=== PATIENT | female | born 1965 | race Caucasian/White ===

== ENCOUNTER 2020-01-17 12:48 | Outpatient (CLI) | payer OTHER, SELFPAY ==
--- NOTE | ~2020-01-17 | MR_ITS ---
EXAMINATION: MR cervical spine wo/w con DATE: 01/17/2020 14:08 INDICATION: Multiple sclerosis. Neck and arm pain. TECHNIQUE: Magnetic resonance imaging (MRI) of the cervical spine was performed without and with 13 m L MultiHance intravenous contrast. Sequences included sagittal and axial T2-weighted FSE, sagittal T2 -weighted FS FSE, and sagittal and axial T1-weighted FSE. Postcontrast sequences included sagittal an d axial T1-weighted FS FSE. COMPARISON: Cervical spine CT 06/15/2018 FINDINGS: There is 4 degrees dextrocurvature of cervical spine. Vertebral body heights and interverte bral disc heights are normal. The spinal cord signal intensity is normal. The following disc levels a re specifically discussed: C2-C3: The disc does not extend beyond the endplate margin. There is mild left uncovertebral joint os teoarthritis. There is no facet joint osteoarthritis. There is no neural foraminal stenosis. There is no central canal stenosis. C3-C4: The disc does not extend beyond the endplate margin. There is no uncovertebral joint osteoarth ritis. There is mild bilateral facet joint osteoarthritis. There is no neural foraminal stenosis. The re is no central canal stenosis. C4-C5: The disc is bulging. There is no uncovertebral joint osteoarthritis. There is mild bilateral f acet joint osteoarthritis. There is no neural foraminal stenosis. There is mild central canal stenosi s. C5-C6: The disc is mildly bulging. There is no uncovertebral joint osteoarthritis. There is no facet joint osteoarthritis. There is no neural foraminal stenosis. There is no central canal stenosis. C6-C7: The disc is mildly bulging. There is no uncovertebral joint osteoarthritis. There is no facet joint osteoarthritis. There is no neural foraminal stenosis. There is no central canal stenosis. C7-T1: The disc does not extend beyond the endplate margin. There is no uncovertebral joint osteoarth ritis. There is mild bilateral facet joint osteoarthritis. There is no neural foraminal stenosis. The re is no central canal stenosis. IMPRESSION: 1. Normal spinal cord. 2. Mild cervical spondylosis. Reviewed, dictated and finalized at location A.
[2020-01-17 13:30] LABS: Estimated Glomerular Filt Rate > 60
== END 2020-01-17 12:49 | disposition home or self-care (01) ==
LOC: ANHIMG 12:50
PROVIDERS: PCP Student in an Organized Health Care Education/Training Program; Visit Provider Psychiatry & Neurology Neurology
DX: G35 Multiple sclerosis (principal); M47.812 Spondylosis without myelopathy or radiculopathy, cervical region
CPT/HCPCS: 36415; 72156; A9577

== ENCOUNTER 2020-03-27 09:41 | Emergency (ER) | payer OTHER, SELFPAY ==
--- NOTE | ~2020-03-27 | CT_ITS ---
EXAMINATION: CT abdomen pelvis w con DATE: 03/27/2020 11:02 INDICATION: Abdominal pain, nausea and vomiting TECHNIQUE: Computed tomography (CT) of the abdomen and pelvis was performed with 100 mL Omnipaque-350 intravenous contrast. Automated exposure control and iterative reconstruction technique were employe d. The dose-length product was 290.42 mGy-cm. COMPARISON: 03/18/2019 FINDINGS: Lung bases are clear. Heart size is normal. No pericardial or pleural effusion. Small sliding-type hi atal hernia versus mild wall thickening in the distal esophagus which could be related to reflux. Elena er, gallbladder, spleen, pancreas, bilateral adrenal glands and kidneys are normal. No abnormal bowel wall thickening or obstruction. Large amount of stool throughout the colon which could be seen with constipation. Bowels including the appendix are otherwise normal with no wall thickening or obstructi on. Bladder is normal. Uterus and bilateral adnexa are not visualized and there are suture lines bila teral in the pelvis consistent with prior hysterectomy and bilateral salpingo-oophorectomy. No free i ntraperitoneal gas or fluid. No pathologically enlarged abdominal or pelvic lymphadenopathy. Bones ar e unremarkable. IMPRESSION: 1. Small sliding-type hiatal hernia versus wall thickening the distal esophagus which could be relate d to reflux. Reviewed, dictated and finalized at location A. IMPRESSION: 1. Small sliding-type hiatal hernia versus wall thickening the distal esophagus which could be related to reflux.
[2020-03-27 09:49] VITALS: BP 122/94; PULSE 85; RESP 20; TEMP 36.2; O2SAT 100
[2020-03-27 10:04] LABS: Basophils Percent Auto 0.3 % (0.2-1.2); Eosinophils Absolute Auto 0.1 K/mm3 (0-0.3); Eosinophils Percent Auto 0.6 % (0-4.4); Hematocrit 43.9 % (37.0-47.0); Hemoglobin 14.5 g/dL (12.0-15.0); Immature Granulocyte Absolute 0.04 K/mm3 (0.00-0.031); Immature Granulocyte Percent A 0.5 % (0-0.5); Lymphocytes Percent Auto 13.8 % (18.3-44.2); Mean Corpuscular Hemoglobin 30.7 pg (26-34); Mean Corpuscular Volume 92.8 fl (80-100); Mean Platelet Volume 11.1 fl (7.4-10.4); Monocytes Absolute Auto 0.9 K/mm3 (0.1-0.6); Monocytes Percent Auto 10.7 % (2.6-8.5); Neutrophils Absolute Auto 5.9 K/mm3 (1.3-6.7); Neutrophils Percent Auto 74.1 % (45.5-73.1); Platelet Count Result 290 k/mm3 (150-375); Red Blood Count 4.73 M/mm3 (4.2-5.4); Red Cell Distribution Width 13.4 % (11.5-14.5)
[2020-03-27 10:11] VITALS: BP 127/79; PULSE 92
[2020-03-27 10:14] VITALS: BP 117/84; PULSE 82
[2020-03-27 10:16] VITALS: BP 118/77; PULSE 86
[2020-03-27 10:16] LABS: Alanine Aminotransferase 37 U/L (4-35); Albumin Level 4.4 g/dL (3.5-5.1); Alkaline Phosphatase 115 U/L (38-126); Aspartate Amino Transferase 34 U/L (14-36); Bilirubin,Total < 0.1 mg/dL (0.2-1.3); Blood Urea Nitrogen 17 mg/dL (7-17); Calcium 9.1 mg/dL (8.4-10.2); Carbon Dioxide 24 mmol/L (22-30); Chloride 106 mmol/L (98-107); Estimated CRCL calculation 68 ml/min; Estimated Glomerular Filt Rate > 60; Glucose 122 mg/dL (65-105); Lipase 619 U/L (23-300); Potassium 4.1 mmol/L (3.4-5.0); Sodium 139 mmol/L (137-145)
--- NOTE | 2020-03-27 10:41 | ED.NAVMDI ---
HPI - Nausea/Vomiting/Diarrhea General Chief complaint: Nausea/Vomiting/Diarrhea Stated complaint: vomiting blood Time Seen by Provider: 03/27/20 10:10 Source: patient Mode of arrival: ambulatory Limitations: no limitations History of Present Illness HPI Narrative: This is a 54 year old female that presents to the ER for nausea x 2 weeks. Reports her doctor recently increased her dose of venlafaxine which she thinks worsened the nausea. She has broke this into two doses which has helped. Reports Monday she vomited and thought she had a couple of small dark spots in it that looked like blood. Reports today she had an episode of vomiting that was pink which prompted her to be seen. Denies fever, chest pain, diarrhea, hematochezia, melena, or dysuria. Related Data Home Medications Medication Instructions Recorded Confirmed alprazolam 0.5 mg tablet 0.5 mg PO TID 09/05/19 baclofen 10 mg tablet 10 mg PO DAILY 09/05/19 cholecalciferol (vitamin D3) 100 4,000 unit PO DAILY 09/05/19 mcg (4,000 unit) capsule fingolimod 0.5 mg capsule 0.5 mg PO DAILY 09/05/19 srwrjfevh-oyt-bzwk fumarate 18 1 tab-cap PO DAILY 09/05/19 mg-FA 600 mcg-vit K 40 mcg capsule ondansetron HCl 8 mg tablet 8 mg PO Q8H 09/05/19 ropinirole 0.25 mg tablet 0.25 mg PO BID 09/05/19 topiramate 50 mg capsule 50 mg PO DAILY 03/19/20 sprinkle,extended release 24 hr venlafaxine 75 mg PO BID 03/27/20 Allergies Allergy/AdvReac Type Severity Reaction Status Date / Time Sulfa (Sulfonamide Allergy Unknown Unknown Verified 03/27/20 10:08 Antibiotics) Review of Systems Review of Systems: Narrative: CONSTITUTIONAL: Denies fever CARDIOVASCULAR: Denies chest pain RESPIRATORY: Denies dyspnea. GASTROINTESTINAL: Reports abdominal pain, nausea, vomiting. Denies diarrhea. GENITOURINARY: Denies dysuria All systems reviewed & are unremarkable except as noted in HPI and below PMFSH Social History Social History Smoking status: Never smoker Second hand tobacco smoke exposure: No Exam Narrative: Exam Narrative: GENERAL: Well-appearing, well-nourished, and in no acute distress. HEAD: Normocephalic, atraumatic. EYES: EOMI. CHEST: Clear to auscultation. No respiratory distress. No wheezes rales or rhonchi HEART: Regular rate and rhythm. No murmur heard. Normal peripheral pulses. ABDOMEN: Soft, nondistended, normal active bowel sounds. Mild tenderness to palpation of the epigastrium, without guarding EXTREMITIES: Normal range of motion. No edema. SKIN: Warm, dry, no rash. NEURO: No focal deficits. Alert and oriented x3. PSYCH: Normal mood and affect Course Consultations Consultation #1: Spoke with on-call primary about work-up. Patient will follow-up in clinic next week. Date: 03/27/20 Time: 12:54 Vital Signs Vital signs: Vital Signs Temperature 97.1 F L 03/27/20 09:49 Pulse Rate 85 03/27/20 09:49 Respiratory Rate 20 03/27/20 09:49 Blood Pressure 122/94 H 03/27/20 09:49 Pulse Oximetry 100 03/27/20 09:49 Temperature 97.1 F L 03/27/20 09:49 Pulse Rate 86 03/27/20 10:16 Respiratory Rate 20 03/27/20 09:49 Blood Pressure 118/77 03/27/20 10:16 Pulse Oximetry 100 03/27/20 09:49 MDM - Nausea/Vomiting/Diarrhea MDM Narrative Medical decision making narrative: Patient presents to the emergency department for nausea x2 weeks. Also reports a couple of episodes of vomiting. Patient is afebrile and nontoxic-appearing. No leukocytosis on CBC. Metabolic panel is without acute findings. Lipase is elevated to 619. UA without evidence of infection. CT scan of the abdomen and pelvis shows a small sliding hiatal hernia versus wall thickening of the distal esophagus due to reflux. Patient given IV fluids, antiemetic and Pepcid in the ED with relief. No episodes of emesis in the ED. Patient is afebrile, no leukocytosis on CBC, and no concerning imaging findings. I do believe p
[2020-03-27] MEDS: FAMOTIDINE 20 MG/2 ML VIAL IV PUSH (10:54)
[2020-03-27] MEDS: SODIUM CHLORIDE 0.9% IV 1,000 ML 999 ML IV CONT (10:54)
[2020-03-27] MEDS: ONDANSETRON INJ 4 MG/2 ML VIAL IV PUSH (10:54)
[2020-03-27 11:03] LABS: Add Urine Microscopic? NO; Appearance Urine Clear (Clear); Bilirubin Urine Negative (Negative); Blood Urine Negative (Negative); Color Urine Yellow (Yellow); Glucose Urine UA Negative (Negative); Ketones Urine Negative (Negative); Leukocyte Esterase Ur Negative LEU/UL (Negative); Nitrate Urine Negative (Negative); Protein Urine Negative (Negative); Specific Grav Ur 1.019 (1.001-1.035); Urobilinogen Urine Negative mg/dL (<2.0)
== END 2020-03-27 13:10 | disposition home or self-care (01) ==
PROVIDERS: Emergency Provider Emergency Medicine; PCP Student in an Organized Health Care Education/Training Program
DX: K85.90 Acute pancreatitis without necrosis or infection, unspecified (principal); R93.3 Abnormal findings on diagnostic imaging of other parts of digestive tract
CPT/HCPCS: 36415; 74177; 80053; 81003; 83690; 85025; 96361; 96374; 96375; 99284; J0131; J2405; J7030; Q9967

== ENCOUNTER 2020-04-16 15:35 | Outpatient (CLI) | payer OTHER, SELFPAY ==
[2020-04-16 11:22] LABS: Basophils Percent Auto 0.4 % (0.2-1.2); Eosinophils Absolute Auto 0.1 K/mm3 (0-0.3); Eosinophils Percent Auto 1.6 % (0-4.4); Hematocrit 44.2 % (37.0-47.0); Hemoglobin 14.5 g/dL (12.0-15.0); Immature Granulocyte Absolute 0.02 K/mm3 (0.00-0.031); Immature Granulocyte Percent A 0.4 % (0-0.5); Lymphocytes Absolute Auto 0.82 K/mm3 (0.9-3.2); Lymphocytes Percent Auto 14.9 % (18.3-44.2); Mean Corpuscular HGB Conc 32.8 g/dl (32-36); Mean Corpuscular Hemoglobin 30.1 pg (26-34); Mean Corpuscular Volume 91.9 fl (80-100); Mean Platelet Volume 11.2 fl (7.4-10.4); Monocytes Absolute Auto 0.7 K/mm3 (0.1-0.6); Monocytes Percent Auto 12.6 % (2.6-8.5); Neutrophils Absolute Auto 3.9 K/mm3 (1.3-6.7); Neutrophils Percent Auto 70.1 % (45.5-73.1); Platelet Count Result 269 k/mm3 (150-375); Red Blood Count 4.81 M/mm3 (4.2-5.4); Red Cell Distribution Width 13.4 % (11.5-14.5); White Blood Count 5.5 K/mm3 (4.5-10.0)
[2020-04-16 11:33] LABS: Add Urine Microscopic? YES; Appearance Urine Clear (Clear); Bacteria Urine Trace /hpf; Bilirubin Urine Negative (Negative); Blood Urine Negative (Negative); Color Urine Yellow (Yellow); Glucose Urine UA Negative (Negative); Ketones Urine Negative (Negative); Leukocyte Esterase Ur Trace LEU/UL (NEGATIVE); Mucus Urine Heavy /lpf; Nitrate Urine Negative (Negative); Protein Urine Negative (Negative); RBC Urine 0-2 /hpf (0-2); Specific Grav Ur 1.024 (1.001-1.035); Squamous Epithelial Cell Urine Many /hpf (Few); Urobilinogen Urine Negative mg/dL (<2.0); WBC Urine 0-3 /hpf (0-3)
[2020-04-16 11:41] LABS: Alanine Aminotransferase 45 U/L (4-35); Albumin Level 4.4 g/dL (3.5-5.1); Alkaline Phosphatase 120 U/L (38-126); Anion Gap 11.3 mmol/L (7-16); Aspartate Amino Transferase 39 U/L (14-36); Bilirubin,Total 0.2 mg/dL (0.2-1.3); Blood Urea Nitrogen 17 mg/dL (7-17); Calcium 9.3 mg/dL (8.4-10.2); Carbon Dioxide 26 mmol/L (22-30); Chloride 106 mmol/L (98-107); Cholesterol 162 mg/dL (0-200); Estimated Glomerular Filt Rate > 60; Glucose 103 mg/dL (65-105); HDL Direct 34 mg/dL; Potassium 4.3 mmol/L (3.4-5.0); Sodium 139 mmol/L (137-145); Triglycerides 119 mg/dL (<150)
[2020-04-16 11:52] LABS: LDL Cholesterol Direct 93 mg/dL
[2020-04-16 12:04] LABS: Iron 86 ug/dL (37-170)
[2020-04-16 12:13] LABS: Percent Iron Saturation 28 % (20-50)
[2020-04-16 12:46] LABS: Folic Acid 9.3 ng/mL (2.76->20)
[2020-04-16 15:49] LABS: Lipase 102 U/L (23-300)
== END 2020-04-16 15:36 | disposition home or self-care (01) ==
PROVIDERS: PCP Physician Assistant; Visit Provider Physician Assistant
DX: K21.9 Gastro-esophageal reflux disease without esophagitis (principal); G35 Multiple sclerosis; F41.9 Anxiety disorder, unspecified; G44.209 Tension-type headache, unspecified, not intractable
CPT/HCPCS: 36415; 80053; 80061; 81001; 82607; 82746; 83540; 83550; 83690; 84443; 85025

== ENCOUNTER 2020-04-24 07:17 | Outpatient (CLI) | payer OTHER, SELFPAY ==
--- NOTE | ~2020-04-24 | US_ITS ---
EXAMINATION: US right upper quadrant DATE: 04/24/2020 07:45 INDICATION: Right upper quadrant pain TECHNIQUE: Multiple grayscale and Doppler ultrasound images of the abdomen were obtained. COMPARISON: None available FINDINGS: The head and and body of the pancreas are normal. The pancreatic tail is obscured by bowel gas. The liver is normal with normal echogenicity and echotexture. No surface nodularity. Normal hepa topetal flow in the main portal vein. The gallbladder is normal with no abnormal wall thickening, per icholecystic fluid or stones. The normal common bile duct measures 3 mm. There was no sonographic Mur phy sign. IMPRESSION: 1. Normal sonographic study of the gallbladder. Reviewed, dictated and finalized at location B.
== END 2020-04-24 07:18 | disposition home or self-care (01) ==
PROVIDERS: PCP Physician Assistant; Visit Provider Physician Assistant
DX: R11.2 Nausea with vomiting, unspecified (principal)
CPT/HCPCS: 76705

== ENCOUNTER 2020-06-04 12:30 | Outpatient (RCR) | payer OTHER, SELFPAY ==
[2020-03-12 10:30] VITALS: BP_SYST 92
--- NOTE | 2020-03-12 11:21 | PTOPEVAL ---
Thank you for referring Liliane Quiñonez to [facility]. Please review, sign, date and return this plan of care MARISA. Pt seen for therapy evaluation due to right shoulder pain. She demonstrates significant impairments with range, strength, UE function and pain. She requires additional skilled therapy to address impairments and improve UE function. REcommend cont PT 2x/wk x 8 wk. I agree with and certify that the following plan of care is medically necessary. Referring Physician Date Attending Provider: Farzaneh Manzo, TEASEL GIG OPERATOR *PT Outpatient Evaluation Start: 03/12/20 10:32 Freq: Status: Active Protocol: Document 03/12/20 10:30 CAP (Rec: 03/12/20 11:21 CAP [email or web address]) Therapy Assessment Status Assessment Status Assessment Status Evaluation Outpatient Past Medical History Past Medical History Source of Past Medical History Patient Neurological History Hx Migraine Yes Hx Multiple Sclerosis Yes: years Cardiovascular History Hx Cardiac Disorders No Significant History Respiratory History Hx Respiratory Disorders No Significant History Musculoskeletal History Hx Musculoskeletal Disorders No Significant History Reproductive History Hx Hysterectomy Yes Psychosocial History Hx Anxiety Yes Hx Depression Yes Other History Hx Cancer Yes: basal cell Evaluation Information Problem Diagnosis right shoulder pain Onset November 2018 Cause unknown Subjective Information Reports she started having Query Text:As Reported By Patient/ pain in november after she threw Family her purse over her shoulder. Reports catching of her shoulder with any reaching overhead or behind, quick UE motions, pushing into UE, carrying or lifting objects. She is limited to a gallon of milk. She reports difficulty with sleeping due to sleeping on right side. Reports right upper arm numbness and tingling with shoulde shooting pain with prolonged driving or computer with UE out in front. Diagnostic Tests X-Rays For This Problem Yes Previous Treatments Previous Treatments For This Problem exercise at home Prior Level of Function Activity Level (Last 3 Months) Occupation not working-disability Hand Dominance Right Activity of Daily Living Ability
[2020-04-13 13:31] VITALS: BP_SYST 87
--- NOTE | 2020-04-13 14:24 | PTOPEVAL ---
Thank you for referring Liliane Quiñonez to [facility]. Please review, sign, date and return this plan of care MARISA. Pt has received 9 therapy visits to address right UE impairments. She demonstrates a decline with shoulder range, strength and scapular stability strength. She demonstrates minimal progress towards therapy goals. Recommend she f/u with her MD due to limited progress. Cont PT 2x/wk x 4-6wk to address UE impairments. I agree with and certify that the following plan of care is medically necessary. Referring Physician Date Attending Provider: Farzaneh Manzo, CABLE TOWER OPERATOR PT re-evaluation note *PT Outpatient Evaluation Start: 03/12/20 10:32 Freq: Status: Active Protocol: Document 04/13/20 13:31 CAP (Rec: 04/13/20 13:54 CAP [email or web address]) Therapy Assessment Status Assessment Status Assessment Status Re-evaluation Outpatient Past Medical History Past Medical History Source of Past Medical History Patient Neurological History Hx Migraine Yes Hx Multiple Sclerosis Yes: years Cardiovascular History Hx Cardiac Disorders No Significant History Respiratory History Hx Respiratory Disorders No Significant History Musculoskeletal History Hx Musculoskeletal Disorders No Significant History Reproductive History Hx Hysterectomy Yes Psychosocial History Hx Anxiety Yes Hx Depression Yes Other History Hx Cancer Yes: basal cell Evaluation Information Problem Diagnosis right shoulder pain Onset November 2018 Cause unknown Subjective Information She reports cont pain with Query Text:As Reported By Patient/ right UE activities. She Family reports difficulty lifting the UE. She is unsure if it's the MS or muscle weakness. She remains limited with reaching She reports cont difficulty with sleeping due to sleeping on right side. She has throbbing pain with sleeping and driving.She has increased pain with playing with her dog . She is performing the HEP daily. She applied ice for pain relief. Pain Assessment Timing of Pain Assessment Timing of Pain Assessment Re-assessment Pain Scale Pain Scale Used Numeric (1 - 10) Self Report Pain Assessment Right Shoulder(s) Reported Pain Level 4 Pain Description Spasms Pain Radiation Right Arm Pain Frequency
--- NOTE | 2020-04-15 15:22 | PCPTNOTE ---
Patient called & cancelled scheduled appointment this date due to [ illness]
--- NOTE | 2020-04-30 15:42 | PCPTNOTE ---
Patient did not show up for scheduled appointment this date.
[2020-05-12 11:04] VITALS: BP_SYST 90
--- NOTE | 2020-05-12 11:56 | PTOPEVAL ---
Thank you for referring Liliane Quiñonez to [facility].? The patient is scheduled to be seen for therapy? 2 x/week for 4-6 weeks. Please review, sign, date and return this plan of care MARISA. I agree with and certify that the following plan of care is medically necessary. Referring Physician Date Admitting Provider: Attending Provider: Farzaneh Manzo, SALES TRAINER Physical Therapy progress note *PT Outpatient Evaluation Start: 03/12/20 10:32 Freq: Status: Active Protocol: Document 05/12/20 11:04 SOURAV (Rec: 05/12/20 11:56 SOURAV [id number]) Therapy Assessment Status Assessment Status Assessment Status Re-evaluation Evaluation Information Problem Diagnosis right shoulder pain Onset November 2018 Cause unknown Subjective Information She is performing more Query Text:As Reported By Patient/ activities of yardwork, moving Family objects and daily activities. She is using the pool to assist with shoulder range. She cont to feel limited with shoulder motions. She is unsure if it's the MS or muscle weakness that are limiting her UE movement. She reports she is having muscle spasms due to her MS. She bought a back glass engraver due to limited reaching motion. She reports limitation is greater with overhead motion. She reports improved tolerance with sleeping. She reports improved tolerance with driving, but will get a pinching of elbow and shoulder with prolonged holding of steering wheel. Pain Assessment Timing of Pain Assessment Timing of Pain Assessment Re-assessment Pain Scale Pain Scale Used Numeric (1 - 10) Self Report Pain Assessment Right Shoulder(s) Reported Pain Level 3 Pain Description Aching,Radiating,Spasms,Tender on Palpation,Tightness, Tingling Pain Frequency Chronic,Continuous Lowest Pain Intensity 3 Greatest Pain Intensity 8 Pain Aggravating Factors ADL's,Exercise/Activity, Lifting Pain Behaviors Anxious,Guarding Pain Score Pain Score 3: Self Report Upper
--- NOTE | 2020-05-14 11:18 | PCPTNOTE ---
Patient called & cancelled scheduled appointment this date due to illness.
--- NOTE | 2020-05-26 14:52 | PCPTNOTE ---
Patient called & cancelled scheduled appointment this date due to being sick.
--- NOTE | 2020-06-02 11:08 | PCPTNOTE ---
Patient called & cancelled scheduled appointment this date due to shoulder pain from MS.
[2020-06-04 12:34] VITALS: BP_SYST 80
--- NOTE | 2020-06-04 13:23 | PTOPEVAL ---
Thank you for referring Liliane Quiñonez to [facility].? Pt has reached maximal potential with skilled therapy service with limited progress with pain, range and strength.DC skilled therapy at this time. Please review, sign, date and return this plan of care MARISA. I agree with and certify that the following plan of care is medically necessary. Referring Physician Date Attending Provider: Thien Chakraborty PA-C Discharge Note *PT Outpatient Evaluation Start: 03/12/20 10:32 Freq: Status: Active Protocol: Document 06/04/20 12:34 SOURAV (Rec: 06/04/20 13:17 SOURAV [id number]) Therapy Assessment Status Assessment Status Assessment Status Re-evaluation/Discharge Note Evaluation Information Problem Diagnosis right shoulder pain Onset November 2018 Cause unknown Subjective Information She had a f/u with PCP who Query Text:As Reported By Patient/ recommend pt to be seen by a Family ortho MD due to cont issues with right shoulder. She cont to have right shoulder with pain and restrictions with yardwork, increased UE activities, reaching act. 8/10 right shoulder pain with ADL's. She cont to c/o having muscle spasms with burning pain of left entire arm. Symptoms are intermittent during the day. Muscle spasm interfer with her sleep. She reports cont pain with turning the wheel with driving. Pain Assessment Timing of Pain Assessment Timing of Pain Assessment Re-assessment Pain Scale Pain Scale Used Numeric (1 - 10) Self Report Pain Assessment Right Shoulder(s) Reported Pain Level 2 Pain Description Aching,Spasms,Tender on Palpation Pain Frequency Chronic,Continuous Lowest Pain Intensity 2 Greatest Pain Intensity 8 Pain Aggravating Factors ADL's,Exercise/Activity Pain Behaviors Anxious Pain Relief Interventions Used By Heat,Ice,Massage Modalities Patient Additional Pain Comments 3 days ago,slipped wet ground, caught self with R arm,pulled arm-ROM better Pain Score Pain Score 2: Self Report Upper Extremity Range of Motion Scapular/ Shoulder Range of Motion Right Scapular: Retraction Hypo
== END 2020-06-05 11:57 | disposition home or self-care (01) ==
LOC: ANHPT 12:30
PROVIDERS: PCP Physician Assistant; Visit Provider Physician Assistant
DX: M25.511 Pain in right shoulder (principal); G89.29 Other chronic pain
CPT/HCPCS: 97014; 97035; 97110; 97140; 97162; G0283

== ENCOUNTER 2020-06-20 00:35 | Outpatient (CLI) | payer OTHER, SELFPAY ==
[2020-06-20 17:49] LABS: SARS-CoV-2 RNA PCR Negative
== END 2020-06-20 00:36 | disposition home or self-care (01) ==
LOC: ANHCOVIDDT 00:35
PROVIDERS: PCP Physician Assistant; Visit Provider Internal Medicine Gastroenterology
DX: Z01.812 Encounter for preprocedural laboratory examination (principal); Z20.828 Contact with and (suspected) exposure to other viral communicable diseases
CPT/HCPCS: 87635; C9803; U0003

== ENCOUNTER 2020-06-23 02:37 | Day surgery (SDC) | payer OTHER, SELFPAY ==
[2020-06-16 14:44] VITALS: BMI 24.0
[2020-06-23 06:26] VITALS: BP 129/72; PULSE 74; RESP 18; TEMP 36.2; O2SAT 99; BMI 24.0
[2020-06-23] MEDS: LACTATED RINGERS 1,000 ML 150 ML IV CONT (06:44)
--- NOTE | 2020-06-23 07:12 | P.PNAN_ITS ---
Anes - Initial Pre Proc Eval Procedure: Operation Date: 06/23/20 07:30 Proposed Procedures p Esophagogastroduodenoscopy - Chet Stacy MD Date/Time: 06/23/20 07:12 Surgeon: Chet Stacy MD Pre Op Diagnosis: N & V Patient Data Age: 54 Gender: F Height: 5 ft 4 in Weight: 63.7 kg Last Vital Signs Temp 97.2 F L 06/23/20 06:26 Pulse 74 06/23/20 06:26 Resp 18 06/23/20 06:26 BP 129/72 06/23/20 06:26 Pulse Ox 99 06/23/20 06:26 Allergies Allergy/AdvReac Type Severity Reaction Status Date / Time doxycycline Allergy Unknown Rash Verified 06/23/20 06:25 Sulfa (Sulfonamide Allergy Unknown Rash Verified 06/23/20 06:25 Antibiotics) Home Medications Medication Instructions Recorded Confirmed Type alprazolam 0.5 mg tablet 0.5 mg PO TID 09/05/19 06/16/20 History baclofen 10 mg tablet 10 mg PO QID 09/05/19 06/16/20 History cholecalciferol (vitamin D3) 100 4,000 unit PO DAILY 09/05/19 06/16/20 History mcg (4,000 unit) capsule fingolimod 0.5 mg capsule 0.5 mg PO DAILY 09/05/19 06/16/20 History qgdbrdxms-pmt-nqdp fumarate 18 1 tab-cap PO DAILY 09/05/19 06/16/20 History mg-FA 600 mcg-vit K 40 mcg capsule ondansetron HCl 8 mg tablet 8 mg PO Q8H 09/05/19 06/16/20 History ropinirole 0.25 mg tablet 0.25 mg PO BID 09/05/19 06/16/20 History estradiol 1 mg tablet 1 mg PO DAILY #90 tablet 10/02/19 06/16/20 Rx topiramate 50 mg capsule 50 mg PO DAILY 03/19/20 06/16/20 History sprinkle,extended release 24 hr venlafaxine 75 mg PO BID 03/27/20 06/16/20 History butalbital 50 mg-acetaminophen 325 1 cap PO Q4H PRN 04/08/20 06/16/20 History mg-caffeine 40 mg-codeine 30 mg cap famotidine 20 mg tablet 20 mg PO DAILY 04/08/20 06/16/20 History Patient hx anesthesia problems: none Family hx anesthesia problems: none [facility] Social History Social History Smoking status: Never smoker Second hand tobacco smoke exposure: No Alcohol intake: former Alcohol use details: former social drinker Substance use: never Substance use type: does not use Living arrangements: with family Gender identity (if verbalized by the patient): Female Spiritual care concerns: No Anes - Eval Final PreProcedure Day of Procedure 06/23/20 07:12 Patient weight: normal Heart: regular rate and rhythm Lungs: clear to auscultation Airway: Mallampati scale class II Neurological: alert and oriented Last oral intake: >/= 8 hours ASA classification: III Emergent: no Anesthetic plan: proceed Anesthesia type and monitoring: general GIVS and standard monitoring Informed Consent: The patient's anesthetic plan and its attendant risks and benefits were discussed with the patient/family/POA. Questions were solicited and answers provided to the satisfaction of the patient/family/POA.
--- NOTE | 2020-06-23 07:30 | PM.HPGS ---
History of Present Illness History of Present Illness Consent: Risks, benefits, and alternatives have been discussed and questions answered. Patient agrees to proceed with procedure. Chief complaint: N & V Narrative: Liliane Quiñonez is a 54 year old female with nausea, CT scan showed possible esophagitis Review of Systems Constitutional: Constitutional: Denies headache(s) and Denies weakness Eyes: Eyes: Denies blurry vision ENT: Reports Normal hearing present, Denies headache(s) and Denies neck pain Cardiovascular: Cardiovascular: Denies chest pain and Denies dyspnea Respiratory: Respiratory: Denies dyspnea Gastrointestinal: Gastrointestinal: Reports no additional gastrointestinal complaints Genitourinary: Genitourinary: Denies dysuria Musculoskeletal: Musculoskeletal: Denies neck pain Integumentary/Breasts: Skin/Breast: Denies dry skin Neurologic: Reports Normal hearing present, Denies headache(s) and Denies weakness Psychiatric: Psychiatric: Denies anxiety Endocrine: Endocrine: Denies change in body appearance Hematologic/Lymphatic: Hematologic/Lymphatic: Denies easy bleeding Allergic/Immunologic: Allergic/Immunologic: Denies urticaria PMFSH Social History Social History Smoking status: Never smoker Second hand tobacco smoke exposure: No Alcohol intake: former Alcohol use details: former social drinker Substance use: never Substance use type: does not use Living arrangements: with family Gender identity (if verbalized by the patient): Female Spiritual care concerns: No Meds Home Medications and Allergies Home Medications Medication Instructions Recorded Confirmed Type alprazolam 0.5 mg tablet 0.5 mg PO TID 09/05/19 06/16/20 History baclofen 10 mg tablet 10 mg PO QID 09/05/19 06/16/20 History cholecalciferol (vitamin D3) 100 4,000 unit PO DAILY 09/05/19 06/16/20 History mcg (4,000 unit) capsule fingolimod 0.5 mg capsule 0.5 mg PO DAILY 09/05/19 06/16/20 History zyeljzvlj-mdp-[id number] fumarate 18 1 tab-cap PO DAILY 09/05/19 06/16/20 History mg-FA 600 mcg-vit K 40 mcg capsule ondansetron HCl 8 mg tablet 8 mg PO Q8H 09/05/19 06/16/20 History ropinirole 0.25 mg tablet 0.25 mg PO BID 09/05/19 06/16/20 History estradiol 1 mg tablet 1 mg PO DAILY #90 tablet 10/02/19 06/16/20 Rx topiramate 50 mg capsule 50 mg PO DAILY 03/19/20 06/16/20 History sprinkle,extended release 24 hr venlafaxine 75 mg PO BID 03/27/20 06/16/20 History butalbital 50 mg-acetaminophen 325 1 cap PO Q4H PRN 04/08/20 06/16/20 History mg-caffeine 40 mg-codeine 30 mg cap famotidine 20 mg tablet 20 mg PO DAILY 04/08/20 06/16/20 History Allergies Allergy/AdvReac Type Severity Reaction Status Date / Time doxycycline Allergy Unknown Rash Verified 06/23/20 06:25 Sulfa (Sulfonamide Allergy Unknown Rash Verified 06/23/20 06:25 Antibiotics) Vital Signs Vital Signs - 24 hr 06/23/20 06:26 Temperature 97.2 F L Pulse Rate 74 Respiratory Rate 18 Blood Pressure 129/72 Pulse Oximetry 99 Exam Const: General: comfortable and no acute distress HENMT: General nose exam: Normal nares present Eyes: General: appearance normal, both eyes and all related structures Neck: Neck: no JVD Resp: Auscultation: clear to auscultation bilaterally Cardio: Rate: regular rate Rhythm: regular rhythm GI: Inspection: non-distended GI Palp: Yes Soft to palpation Skin: General skin exam: normal color Neuro: General: gait normal Speech: normal speech Extrem: General: normal to inspection Psych: Mental Status: mental status grossly normal Assessment and Plan Assessment and plan (1) GERD (gastroesophageal reflux disease): Qualifiers: Esophagitis presence: esophagitis presence not specified Qualified Code(s): K21.9 - Gastro-esophageal reflux disease without esophagitis Code(s): K21.9 - Gastro-esophageal reflux disease w
[2020-06-23 07:49] VITALS: BP 100/82; PULSE 63; RESP 16; O2SAT 99
[2020-06-23 07:59] VITALS: BP 100/92; PULSE 61; RESP 18; O2SAT 99
[2020-06-23 08:09] VITALS: BP 101/59; PULSE 60; RESP 18; O2SAT 99
== END 2020-06-23 08:25 | disposition home or self-care (01) ==
PROVIDERS: PCP Physician Assistant; Visit Provider Internal Medicine Gastroenterology
PROC: 0DJ08ZZ Inspection of Upper Intestinal Tract, Via Natural or Artificial Opening Endoscopic (ICD-10-PCS; CPT 43235; principal; 2020-06-23 07:30)
DX: R11.0 Nausea (principal); K21.9 Gastro-esophageal reflux disease without esophagitis; K44.9 Diaphragmatic hernia without obstruction or gangrene
CPT/HCPCS: 43239; 88305; J2704; J7120

== ENCOUNTER 2020-08-07 15:28 | Outpatient (CLI) | payer OTHER, SELFPAY ==
[2020-08-07 16:01] LABS: Hematocrit 40.3 % (37.0-47.0); Immature Granulocyte Absolute 0.01 K/mm3 (0.00-0.031); Immature Granulocyte Percent A 0.3 % (0-0.5); Lymphocytes Absolute Auto 0.57 K/mm3 (0.9-3.2); Lymphocytes Percent Auto 14.4 % (18.3-44.2); Mean Corpuscular HGB Conc 32.3 g/dl (32-36); Mean Corpuscular Hemoglobin 29.3 pg (26-34); Monocytes Absolute Auto 0.5 K/mm3 (0.1-0.6); Monocytes Percent Auto 13.2 % (2.6-8.5); Neutrophils Absolute Auto 2.8 K/mm3 (1.3-6.7); Neutrophils Percent Auto 71.1 % (45.5-73.1); Platelet Count Result 242 k/mm3 (150-375); Red Blood Count 4.43 M/mm3 (4.2-5.4); Red Cell Distribution Width 14.7 % (11.5-14.5)
[2020-08-07 16:12] LABS: Alanine Aminotransferase 88 U/L (4-35); Albumin Level 4.2 g/dL (3.5-5.1); Alkaline Phosphatase 139 U/L (38-126); Aspartate Amino Transferase 57 U/L (14-36); Bilirubin,Total 0.2 mg/dL (0.2-1.3)
== END 2020-08-07 15:29 | disposition home or self-care (01) ==
LOC: ANHLAB 15:30
PROVIDERS: PCP Physician Assistant; Visit Provider Psychiatry & Neurology Neurology
DX: G35 Multiple sclerosis (principal)
CPT/HCPCS: 36415; 80076; 85025

== ENCOUNTER 2020-09-10 17:41 | Outpatient (CLI) | payer OTHER, SELFPAY ==
--- NOTE | ~2020-09-10 | MM_ITS ---
EXAMINATION: MM screening mammo BI HISTORY: Screening mammogram TECHNIQUE: Full field digital craniocaudal and mediolateral oblique views of both breasts were obtain ed. CAD analysis was submitted and interpreted. COMPARISON: 08/23/2018 BREAST PARENCHYMAL COMPOSITION: The breasts are heterogeneously dense, which may obscure small masses . FINDINGS: Right breast: There is no evidence of suspicious mass, calcification, or architectural distortion to suggest malignancy. There has been no suspicious interval change. Left breast: An asymmetry is present in the middle third of the upper breast 5 cm from the nipple in the anterior fibroglandular margin on the mediolateral oblique view. IMPRESSION: 1. Left breast asymmetry on the mediolateral oblique view. 2. Additional mammographic views and possible breast ultrasound are recommended. BI-RADS Category 0: Incomplete: Needs additional imaging evaluation. Reviewed, dictated and finalized at location A. ESS DESIGN CHEMICAL ENGINEER IMPRESSION: 1. Left breast asymmetry on the mediolateral oblique view. 2. Additional mammographic views and possible breast ultrasound are recommended . BI-RADS Category 0: Incomplete: Needs additional imaging evaluation.
== END 2020-09-10 17:42 | disposition home or self-care (01) ==
PROVIDERS: PCP Physician Assistant; Visit Provider Student in an Organized Health Care Education/Training Program
DX: Z12.31 Encounter for screening mammogram for malignant neoplasm of breast (principal); R92.8 Other abnormal and inconclusive findings on diagnostic imaging of breast
CPT/HCPCS: 77067

== ENCOUNTER 2020-11-10 12:34 | Outpatient (CLI) | payer OTHER, SELFPAY ==
--- NOTE | ~2020-11-10 | MMUS_ITS ---
EXAMINATION: MM diagnostic darío LT w [place], US breast LT complete HISTORY: Follow-up left breast asymmetry TECHNIQUE: Additional 3-D tomosynthesis images of the left breast were performed and synthetic 2-D im ages were generated. CAD analysis was submitted and interpreted. High resolution left breast ultrasou nd was performed. COMPARISON: Comparison to multiple prior studies sequentially, with oldest reviewed study dated 07/27. BREAST PARENCHYMAL COMPOSITION: The breasts are heterogenously dense, which may obscure small masses. FINDINGS: MAMMOGRAPHIC FINDINGS: There are no suspicious masses, calcifications or architectural distortion in the left breast with sp ot compression or mediolateral views. ULTRASOUND: Complete left breast ultrasound: Normal heterogeneous echotexture without focal solid or cystic mass. IMPRESSION: 1. No mammographic or sonographic evidence for malignancy in the left breast. 2. Routine yearly screening mammogram and regular clinical breast examination are recommended. BI-RADS Category 1: Negative Reviewed, dictated and finalized at location A. KE ASSESSOR IMPRESSION: 1. No mammographic or sonographic evidence for malignancy in the left breast. 2. Routine yearly screening mammogram and regular clinical breast examination a re recommended. BI-RADS Category 1: Negative
== END 2020-11-10 12:35 | disposition home or self-care (01) ==
LOC: ANHIMG 12:36
PROVIDERS: PCP Physician Assistant; Visit Provider Student in an Organized Health Care Education/Training Program
DX: R92.8 Other abnormal and inconclusive findings on diagnostic imaging of breast (principal)
CPT/HCPCS: 76641; 77061; 77065; G0279

== ENCOUNTER 2020-12-02 08:49 | Outpatient (CLI) | payer OTHER, SELFPAY ==
--- NOTE | ~2020-12-02 | DEXA_ITS ---
Bone Density Report Name: Liliane Quiñonez Age: 55 Sex: Female Ethnicity: White Date of : 1965 Indication: postmenopausal; hysterectomy; Referring Provider: Thien Chakraborty Study: Bone densitometry was performed. Exam Date: December 02, 2020 Accession number: [id number] Bone Density: Region BMD T-score Z-score Classification AP Spine (L1-L4) 0.842 -1.9 -0.7 Osteopenia Femoral Neck (Left) 0.701 -1.3 -0.2 Osteopenia Total Hip (Left) 0.743 -1.6 -0.9 Osteopenia Total Hip Bilateral Avg 0.753 -1.6 -0.8 Osteopenia Femoral Neck (Right) 0.696 -1.4 -0.3 Osteopenia Total Hip (Right) 0.762 -1.5 -0.7 Osteopenia World Health Organization criteria for BMD impression classify patients as: Normal (T-score at or above -1.0), Osteopenia (T-score between -1.0 and -2.5), or Osteoporosis (T-score at or below -2.5). 10-year Fracture Risk(1): Major Osteoporotic Fracture 6.1% Hip Fracture 0.4% Reported Risk Factors: [place] (), Neck BMD=0.696, BMI=22.1 (1) FRAX(R) Version 3.08. Fracture probability calculated for an untreated patient. Fracture probability may be lower if the patient has received treatment. Clinical Information Provided by Patient: Has used the following medications: Vitamin D Has the following medical conditions: Hysterectomy Patient maximum height was 65 Menopause Age: 38 No regular weight bearing exercise Onset of menses at age 13 Number of children 0 Impression: The patient has low bone mass, based on the Total Spine T-score. The patient has an estimated ten-year risk of hip fracture of 0.4% and an estimated ten-year risk of major fracture of 6.1%, based on the WHO FRAX algorithm. Discussion: BONE DENSITY IS LOW AT ONE OR MORE SKELETAL SITES. This patient's lowest T-score is low at one or more skeletal sites. It meets the World Health Organization's (WHO) criteria for ?low bone mass? (T-score between -1.0 and -2.5). The patient's 10-year risk of fracture as calculated by FRAX is less than the threshold where pharmacological therapy is recommended by the National Osteoporosis Foundation (NOF). However, all treatment decisions require clinical judgment and consideration of individual patient factors, including patient preferences, comorbidities, previous drug use, risk factors not captured in the FRAX model (e.g., frailty, falls, vitamin D deficiency, increased bone turnover, interval significant decline in bone density) and possible under or overestimation of fracture risk by FRAX. The patient should follow a healthful lifestyle (good nutrition with adequate calcium and vitamin D, and appropriate weight-bearing exercise). Follow-Up: Consider repeating this study in 2 to 3 years to reassess this patient's status, or sooner if there is some new clinical indication. Reported by: ZACHARY on 12/02
== END 2020-12-02 08:50 | disposition home or self-care (01) ==
LOC: ANHIMG 08:51
PROVIDERS: PCP Physician Assistant; Visit Provider Physician Assistant
DX: Z78.0 Asymptomatic menopausal state (principal); M81.0 Age-related osteoporosis without current pathological fracture; M85.88 Other specified disorders of bone density and structure, other site; M85.852 Other specified disorders of bone density and structure, left thigh; M85.851 Other specified disorders of bone density and structure, right thigh
CPT/HCPCS: 77080

== ENCOUNTER 2020-12-25 12:33 | Outpatient (CLI) | payer OTHER, SELFPAY ==
[2020-12-25 13:47] LABS: Basophils Percent Auto 0.3 % (0.2-1.2); Eosinophils Percent Auto 1.2 % (0-4.4); Hematocrit 39.4 % (37.0-47.0); Hemoglobin 12.5 g/dL (12.0-15.0); Immature Granulocyte Absolute 0.01 K/mm3 (0.00-0.031); Immature Granulocyte Percent A 0.3 % (0-0.5); Lymphocytes Absolute Auto 0.55 K/mm3 (0.9-3.2); Lymphocytes Percent Auto 15.9 % (18.3-44.2); Mean Corpuscular HGB Conc 31.7 g/dl (32-36); Mean Corpuscular Volume 94.5 fl (80-100); Mean Platelet Volume 11.4 fl (7.4-10.4); Monocytes Absolute Auto 0.5 K/mm3 (0.1-0.6); Monocytes Percent Auto 13.9 % (2.6-8.5); Neutrophils Absolute Auto 2.4 K/mm3 (1.3-6.7); Neutrophils Percent Auto 68.4 % (45.5-73.1); Platelet Count Result 226 k/mm3 (150-375); Red Blood Count 4.17 M/mm3 (4.2-5.4); Red Cell Distribution Width 13.7 % (11.5-14.5); White Blood Count 3.5 K/mm3 (4.5-10.0)
[2020-12-25 14:03] LABS: Alanine Aminotransferase 57 U/L (4-35); Albumin Level 4.4 g/dL (3.5-5.1); Alkaline Phosphatase 109 U/L (38-126); Aspartate Amino Transferase 48 U/L (14-36); Bilirubin,Total 0.1 mg/dL (0.2-1.3)
[2020-12-25 14:43] LABS: Vitamin D 25 Hydroxy 61.6 ng/mL
== END 2020-12-25 12:34 | disposition home or self-care (01) ==
LOC: ANHLAB 12:37
PROVIDERS: PCP Physician Assistant; Visit Provider Psychiatry & Neurology Neurology
DX: G35 Multiple sclerosis (principal)
CPT/HCPCS: 36415; 80076; 82306; 85025

== ENCOUNTER → 2021-06-02 01:35 | Outpatient (CLI) | payer OTHER, SELFPAY ==
[2021-06-02 20:24] LABS: SARS-CoV-2 RNA PCR Negative
== END ==
PROVIDERS: PCP Family Medicine; Visit Provider Physician Assistant
DX: R05 Cough (principal); Z20.822 Contact with and (suspected) exposure to COVID-19
CPT/HCPCS: C9803; U0003; U0005

== ENCOUNTER 2022-01-27 10:17 | Outpatient (CLI) | payer OTHER, SELFPAY ==
--- NOTE | ~2022-01-27 | MM_ITS ---
EXAMINATION: MM screening darío BI w [place] HISTORY: Screening mammogram TECHNIQUE: Craniocaudal and mediolateral oblique 3-D tomosynthesis images were obtained and synthetic 2-D images were generated. CAD analysis was submitted and interpreted. COMPARISON: 11/10/2020 diagnostic left mammogram and complete left breast ultrasound 09/10/2020, 08/23/2008 18 bilateral screening mammogram examinations BREAST PARENCHYMAL COMPOSITION: The breasts are heterogeneously dense, which may obscure small masses . FINDINGS: There is no evidence of suspicious mass, calcification, or architectural distortion to sugg est malignancy in either breast. There has been no suspicious interval change. IMPRESSION: 1. No mammographic evidence of malignancy. 2. Recommend routine screening mammography in one year. BI-RADS Category 1: Negative Reviewed, dictated and finalized at location A.
== END 2022-01-27 10:18 | disposition home or self-care (01) ==
PROVIDERS: PCP Nurse Practitioner Family; Visit Provider Student in an Organized Health Care Education/Training Program
DX: Z12.31 Encounter for screening mammogram for malignant neoplasm of breast (principal)
CPT/HCPCS: 77063; 77067

== ENCOUNTER 2022-04-14 16:00 | Emergency (ER) | payer OTHER, MEDICAID, SELFPAY ==
--- NOTE | ~2022-04-14 | XR_ITS ---
EXAMINATION: XR chest 1V DATE: 04/14/2022 17:00 INDICATION: Chest pain. COVID-19 positive. TECHNIQUE: A single frontal view of the chest was obtained. COMPARISON: Chest 2 views 03/27/2019 FINDINGS: The chest demonstrates clear lungs without pneumonia, pleural effusion, or pneumothorax. Th e heart size is normal. IMPRESSION: 1. No acute cardiopulmonary disease. Reviewed, dictated and finalized at location A.
[2022-04-14 16:32] VITALS: BP 135/89; PULSE 93; RESP 20; TEMP 36.4; O2SAT 100
--- NOTE | 2022-04-14 16:36 | ECG_ITS ---
Measurements Intervals [place] Rate: 80 P: 76 UT: 134 QRS: 19 QRSD: 82 T: 58 QT: 380 QTc: 440 Interpretive Statements SINUS RHYTHM POSSIBLE RIGHT ATRIAL ENLARGEMENT BASELINE ARTIFACT- I, II, III, AVR, AVL, AVF BORDERLINE ECG Electronically Signed On 04-14-2022 20:21:27 CDT by Quique Yun D.O.
[2022-04-14 19:24] VITALS: PULSE 84
--- NOTE | 2022-04-14 19:27 | ED.CHESTPAIN ---
HPI - Chest Pain General Chief Complaint: Chest Pain Stated Complaint: Left Breast Pain, COVID + Time Seen by Provider: 04/14/22 19:23 Source: patient Mode of arrival: ambulatory Limitations: no limitations History of Present Illness HPI narrative: 56 years old white female developed COVID symptoms and tested positive at the same day, 3 days ago. Patient is fully vaccinated for COVID, boosted once. Started on PaxLOVID 3 days ago, presents with chest pain, back pain and muscle pain. Denies any fever, headache, nausea, vomiting. MD complaint: chest pain Related Data Home Medications Medication Instructions Recorded Confirmed alprazolam 0.5 mg tablet 0.5 mg PO TID 09/05/19 12/16/21 fingolimod 0.5 mg capsule ([employer]) 0.5 mg PO DAILY 09/05/19 12/16/21 igqxgudgj-iht-qhec fumarate 18 1 tab-cap PO DAILY 09/05/19 12/16/21 mg-FA 600 mcg-vit K 40 mcg capsule (Multi For Her) ondansetron HCl 8 mg tablet 8 mg PO Q8H 09/05/19 12/16/21 (Zofran) acetaminophen 650 mg 650 mg PO Q12H 11/11/20 12/16/21 tablet,extended release (Tylenol Arthritis Pain) baclofen 10 mg tablet 20 mg PO TID PRN 10/04/21 12/16/21 cholecalciferol (vitamin D3) 100 5,000 unit PO DAILY 10/04/21 12/16/21 mcg (4,000 unit) capsule ropinirole 0.5 mg tablet 0.5 mg PO BID 10/04/21 12/16/21 venlafaxine 75 mg tablet 150 mg PO DAILY 10/04/21 12/16/21 Allergies Allergy/AdvReac Type Severity Reaction Status Date / Time doxycycline Allergy Unknown Rash Verified 04/14/22 19:21 Sulfa (Sulfonamide Allergy Unknown Rash Verified 04/14/22 19:21 Antibiotics) Review of Systems Review of Systems: All systems reviewed & are unremarkable except as noted in HPI and below PMFSH Past Medical History Medical History Acid reflux Allergies Anxiety Basal cell carcinoma BMI 25.0-25.9,adult Breast cancer screening Chronic anxiety Chronic depression Chronic sinusitis Chronic sinusitis Colon cancer screening Constipation COVID-19 (04/08/22) test positive 04/11/2022. Depression Early satiety Elevated liver enzymes Encounter to establish care Food intolerance GERD (gastroesophageal reflux disease) History of skin cancer Migraines Multiple sclerosis Multiple sclerosis Nausea & vomiting Pain of right shoulder joint on movement Postprandial abdominal pain in right upper quadrant Restless leg syndrome Tension headache Surgical History Surgical History H/O myomectomy H/O total hysterectomy with removal of both tubes and ovaries [place] teeth removed Family History Family History Sibling Diabetes mellitus Mother Family history of blood dyscrasia Family history of malignant neoplasm of ovary Father Acute myocardial infarction Social History Social History Smoking status: Never smoker Second hand tobacco smoke exposure: No Alcohol intake: former Alcohol use details: former social drinker Substance use: current Substance use type: marijuana Other substance usage details: medical marijuana for MS Gender identity (if verbalized by the patient): Female Spiritual care concerns: No Exam Narrative: General appearance: Well-developed, well-nourished Skin: Normal color Head: Normocephalic, nontraumatic Eyes: Clear conjunctiva ENT: Oropharynx normal, ears normal, nose normal Neck: Supple, nontender Chest and respiratory: Airway patent, no respiratory distress, no accessory muscle use Heart: Regular rate/rhythm Abdomen: Soft, nontender, no organomegaly, quiet bowel sounds Vascular: Normal peripheral pulses, normal capillary refill. Musculoskeletal: Normal range of motion, nontender back Neurologic: Alert and oriented ?3, CAR PORTER is normal as tested, no gross motor deficit
[2022-04-14 19:30] VITALS: BP 130/74; PULSE 88; RESP 14; O2SAT 99
[2022-04-14 19:43] LABS: Basophils Percent Auto 0.4 % (0.2-1.2); Hematocrit 43.5 % (37.0-47.0); Hemoglobin 14.2 g/dL (12.0-15.0); Immature Granulocyte Absolute 0.02 K/mm3 (0.00-0.031); Immature Granulocyte Percent A 0.8 % (0-0.5); Lymphocytes Absolute Auto 0.88 K/mm3 (0.9-3.2); Lymphocytes Percent Auto 36.2 % (18.3-44.2); Mean Corpuscular HGB Conc 32.6 g/dl (32-36); Mean Corpuscular Hemoglobin 29.8 pg (26-34); Mean Corpuscular Volume 91.4 fl (80-100); Monocytes Absolute Auto 0.6 K/mm3 (0.1-0.6); Monocytes Percent Auto 25.1 % (2.6-8.5); Neutrophils Absolute Auto 0.9 K/mm3 (1.3-6.7); Neutrophils Percent Auto 37.5 % (45.5-73.1); Platelet Count Result 221 k/mm3 (150-375); Red Blood Count 4.76 M/mm3 (4.2-5.4); Red Cell Distribution Width 14.2 % (11.5-14.5); White Blood Count 2.4 K/mm3 (4.5-10.0)
[2022-04-14 19:53] LABS: Alanine Aminotransferase 73 U/L (6-35); Albumin Level 4.8 g/dL (3.5-5.1); Alkaline Phosphatase 119 U/L (38-126); Anion Gap 10 mmol/L (8-16); Aspartate Amino Transferase 64 U/L (14-36); Bilirubin,Total 0.4 mg/dL (0.2-1.3); Blood Urea Nitrogen 13 mg/dL (7-17); Calcium 9.1 mg/dL (8.4-10.2); Carbon Dioxide 23 mmol/L (22-30); Chloride 106 mmol/L (98-107); Estimated CRCL calculation 66 ml/min; Estimated Glomerular Filt Rate > 60; Glucose 106 mg/dL (65-110); INR 0.9; Lipase 84 U/L (23-300); Potassium 3.8 mmol/L (3.4-5.0); Prothrombin Time 11.8 Seconds (11.1-14.7); Sodium 139 mmol/L (137-145)
[2022-04-14 19:54] LABS: Partial Thromboplastin Time 35.6 SECONDS (22.3-36.8)
[2022-04-14 20:05] LABS: Troponin I < 0.012 ng/mL (0.000-0.034)
[2022-04-14 20:15] LABS: D Dimer 0.27 ug/mL (<0.48)
[2022-04-14 20:25] LABS: Alveolar/Arterial O2 Gradient 20.9 mmHg; Base Excess ABG -2.3 mEq/l (+/-2.0); Fractional Inspired Oxygen 21 %; HCO3 ABG 21.3 mEq/l (22.0-26.0); Oxygen Content ABG 19.1 %vol (16.0-22.0); Oxyhemoglobin 95.9 % THb (90.0-100.0); PCO2 ABG 33.3 mmHg (35.0-45.0); PO2 FiO2 Ratio Arterial Blood 4.24 %; Total Hemoglobin 14.1 g/dL (12.0-18.0); pH ABG 7.423 (7.350-7.450)
[2022-04-14 20:26] LABS: Device ROOM AIR; Site Drawn RIGHT BRACHIAL
[2022-04-14 20:30] VITALS: BP 129/69; PULSE 77; RESP 19; O2SAT 96
[2022-04-14 21:00] VITALS: BP 133/89; PULSE 66; RESP 17; O2SAT 97
== END 2022-04-14 21:00 | disposition home or self-care (01) ==
PROVIDERS: Emergency Provider Emergency Medicine; PCP Nurse Practitioner Family
DX: U07.1 COVID-19 (principal); R07.89 Other chest pain; M54.9 Dorsalgia, unspecified; J32.9 Chronic sinusitis, unspecified; K21.9 Gastro-esophageal reflux disease without esophagitis; G35 Multiple sclerosis; G25.81 Restless legs syndrome; Z86.16 Personal history of COVID-19; F32.A Depression, unspecified; F41.9 Anxiety disorder, unspecified; Z85.828 Personal history of other malignant neoplasm of skin; Z90.710 Acquired absence of both cervix and uterus; Z90.722 Acquired absence of ovaries, bilateral; Z90.79 Acquired absence of other genital organ(s); R94.31 Abnormal electrocardiogram [ECG] [EKG]
CPT/HCPCS: 36415; 36600; 71045; 80053; 82805; 83690; 84484; 85025; 85380; 85610; 85730; 93005; 99284

== ENCOUNTER 2022-08-05 12:59 | Outpatient (CLI) | payer OTHER, MEDICAID, SELFPAY ==
--- NOTE | ~2022-08-05 | XR_ITS ---
XR hand LT 2V DATE: 08/05/2022 13:34 INDICATION: Left hand pain TECHNIQUE: AP and lateral views COMPARISON: None FINDINGS: There is mild osteoarthritis at the first metacarpophalangeal and some interphalangeal join ts. No fracture, dislocation, periosteal reaction or bone destruction or erosive change or chondrocalcino sis. IMPRESSION: Mild osteoarthritis Reviewed, dictated and finalized at location A. TITUTE CROSSING GUARD IMPRESSION: Mild osteoarthritis
--- NOTE | ~2022-08-05 | XR_ITS ---
XR hand RT 2V DATE: 08/05/2022 13:33 INDICATION: Right hand pain. No injury. TECHNIQUE: AP and lateral views COMPARISON: None FINDINGS: Mild osteoarthritic changes are noted primarily at interphalangeal joints. No erosive adrian e. No fracture or dislocation, periosteal reaction or bone destruction. IMPRESSION: Mild osteoarthritis Reviewed, dictated and finalized at location A. BASTING FACING BASTER IMPRESSION: Mild osteoarthritis
== END 2022-08-05 13:00 | disposition home or self-care (01) ==
LOC: ANHIMG 13:15
PROVIDERS: PCP Nurse Practitioner Family; Visit Provider Nurse Practitioner Family
DX: M19.041 Primary osteoarthritis, right hand (principal); M19.042 Primary osteoarthritis, left hand; Z13.1 Encounter for screening for diabetes mellitus; Z13.6 Encounter for screening for cardiovascular disorders; Z13.29 Encounter for screening for other suspected endocrine disorder; R39.89 Other symptoms and signs involving the genitourinary system; R39.15 Urgency of urination; R41.9 Unspecified symptoms and signs involving cognitive functions and awareness; F41.9 Anxiety disorder, unspecified; F32.9 Major depressive disorder, single episode, unspecified
CPT/HCPCS: 73120

== ENCOUNTER → 2023-01-30 12:29 | Outpatient (CLI) | payer OTHER, SELFPAY ==
--- NOTE | ~2023-01-30 | MM_ITS ---
EXAMINATION: MM [facility] w [place] HISTORY: Screening mammogram TECHNIQUE: Craniocaudal and mediolateral oblique 3-D tomosynthesis images were obtained and synthetic 2-D images were generated. CAD analysis was submitted and interpreted. COMPARISON: 01/27/2022, 11/10/2020, 09/10/2020 BREAST PARENCHYMAL COMPOSITION: The breasts are heterogeneously dense, which may obscure small masses . FINDINGS: RIGHT BREAST: An asymmetry is present in the anterior third of the slightly inner breast on the crani ocaudal view. LEFT BREAST: No suspicious mass, calcification, or architectural distortion are identified to suggest malignancy. There has been no suspicious interval change. IMPRESSION: 1. Right breast asymmetry 2. Additional mammographic views and possible breast ultrasound are recommended. BI-RADS Category 0: Incomplete: Needs additional imaging evaluation. Reviewed, dictated and finalized at location A. IMPRESSION: 1. Right breast asymmetry 2. Additional mammographic views and possible breast ultrasound are recommended . BI-RADS Category 0: Incomplete: Needs additional imaging evaluation.
== END ==
PROVIDERS: PCP Family Medicine; Visit Provider Obstetrics & Gynecology
DX: Z12.31 Encounter for screening mammogram for malignant neoplasm of breast (principal); R92.8 Other abnormal and inconclusive findings on diagnostic imaging of breast
CPT/HCPCS: 77063; 77067

== ENCOUNTER → 2023-03-07 14:20 | Outpatient (CLI) | payer OTHER, SELFPAY ==
--- NOTE | ~2023-03-07 | MM_ITS ---
EXAMINATION: MM diagnostic darío RT w [place] HISTORY: Right breast asymmetry reported in anterior third of slightly inner breast on screening cran iocaudal view of 01/31/2020. TECHNIQUE: Additional 3-D tomosynthesis images of the right breast were performed and synthetic 2-D i mages were generated. CAD analysis was submitted and interpreted. COMPARISON: 01/30/2023 bilateral screening mammogram FINDINGS: No suspicious mass or architectural distortion is evident. IMPRESSION: 1. No mammographic evidence of malignancy 2. Routine annual mammographic screening is recommended BI-RADS Category 1: Negative Reviewed, dictated and finalized at location A.
== END ==
PROVIDERS: PCP Family Medicine; Visit Provider Obstetrics & Gynecology
DX: R92.8 Other abnormal and inconclusive findings on diagnostic imaging of breast (principal)
CPT/HCPCS: 77061; 77065; G0279

== ENCOUNTER 2024-01-16 10:00 | Outpatient (CLI) | payer OTHER, SELFPAY ==
--- NOTE | 2024-01-16 10:51 | EST_ITS ---
Patient Info Name: Liliane Quiñonez Age: 58 years : 1965 Gender: Female Ht: 64 in Wt: 170 lbs BSA: 1.89 m2 HR: 71 bpm BP: 158 / 81 mmHg Heart Rhythm: Sinus Rhythm Exam Date: 01/16/2024 11:02 AM Exam Location: [facility] Patient Status: Outpatient Admit Date: 01/16/2024 Staff Ordering Physician: Yessenia Harris NP Attending Provider: Yessenia Harris NP Exercise Technologist: Sylvie Martinez CT Exercise Physician: Quique Yun DO Exam Type: CA stress test treadmill Study Info Indications R07.89 - Other chest pain A treadmill exercise stress test was performed. Summary 1. 1. Negative Jamie exercise stress test for ischemic ST changes by ECG criteria. 2. 2. Good functional capacity, achieving 8.9 METs of workload. 3. 3. Baseline hypertension with hypertensive response to exercise. 4. 4. Appropriate HR response to exercise. 5. 5. Appropriate HR recovery at 1 minute post exercise. 6. 6. No imaging with stress testing. 7. 7. Patient informed of the above results. Protocol: Jamie Stress ECG Details Stage: REST Duration (min): 2 min : 8 sec Speed (mph): 0.0 Grade (%): 0 HR (bpm): 72 SBP (mmHg): 158 DBP (mmHg): 81 METS: --- Stage: REST Duration (min): 7 min : 27 sec Speed (mph): 0.0 Grade (%): 0 HR (bpm): 78 SBP (mmHg): 158 DBP (mmHg): 81 METS: --- Stage: STAGE 1 Duration (min): 1 min : 0 sec Speed (mph): 1.7 Grade (%): 10 HR (bpm): 91 SBP (mmHg): 158 DBP (mmHg): 81 METS: --- Stage: STAGE 1 Duration (min): 2 min : 0 sec Speed (mph): 1.7 Grade (%): 10 HR (bpm): 105 SBP (mmHg): 158 DBP (mmHg): 81 METS: --- Stage: STAGE 1 Duration (min): 3 min : 0 sec Speed (mph): 1.7 Grade (%): 10 HR (bpm): 116 SBP (mmHg): 199 DBP (mmHg): 82 METS: --- Stage: STAGE 2 Duration (min): 1 min : 0 sec Speed (mph): 2.5 Grade (%): 12 HR (bpm): 117 SBP (mmHg): 199 DBP (mmHg): 82 METS: --- Stage: STAGE 2 Duration (min): 2 min : 0 sec Speed (mph): 2.5 Grade (%): 12 HR (bpm): 126 SBP (mmHg): 190 DBP (mmHg): 78 METS: --- Stage: STAGE 2 Duration (min): 3 min : 0 sec Speed (mph): 2.5 Grade (%): 12 HR (bpm): 131 SBP (mmHg): 190 DBP (mmHg): 78 METS: --- Stage: STAGE 3 Duration (min): 1 min : 0 sec Speed (mph): 3.4 Grade (%): 14 HR (bpm): 136 SBP (mmHg): 208 DBP (mmHg): 77 METS: --- Stage: STAGE 3 Duration (min): 1 min : 2 sec Speed (mph): 3.4 Grade (%): 14 HR (bpm): 137 SBP (mmHg): 208 DBP (mmHg): 77 METS: --- Stage: RECOVERY Duration (min): 0 min : 57 sec Speed (mph): 0.0 Grade (%): 0 HR (bpm): 128 SBP (mmHg): 208 DBP (mmHg): 77 METS: --- Stage: RECOVERY Duration (min): 1 min : 57 sec Speed (mph): 0.0 Grade (%): 0 HR (bpm): 115 SBP (mmHg): 208 DBP (mmHg): 77 METS: --- Stage: RECOVERY Duration (min): 2 min : 52 sec Speed (mph): 0.0 Grade (%):
--- NOTE | 2024-01-16 11:29 | ECG_ITS ---
SEE SCANNED COPY FOR CONFIRMED REPORT MTDD
== END 2024-01-16 10:01 | disposition home or self-care (01) ==
LOC: ANHCARD 10:04
PROVIDERS: PCP Nurse Practitioner Family; Visit Provider Nurse Practitioner Family
DX: R07.9 Chest pain, unspecified (principal); R68.89 Other general symptoms and signs; R94.39 Abnormal result of other cardiovascular function study
CPT/HCPCS: 93005; 93017

== ENCOUNTER 2025-09-03 12:59 | Outpatient (CLI) | payer OTHER, SELFPAY ==
--- NOTE | ~2025-09-03 | MM_ITS ---
EXAMINATION: MM screening darío BI w [place] HISTORY: Screening. TECHNIQUE: Craniocaudal and mediolateral oblique 3-D tomosynthesis images were obtained and synthetic 2-D images were generated. CAD analysis was submitted and interpreted. COMPARISON: 2022, 2021, and 2020. BREAST PARENCHYMAL COMPOSITION: Dense: The breasts are heterogeneously dense FINDINGS: No suspicious masses are seen. There are no suspicious calcifications. No unexplained architectural distortion is seen. There are no skin or nipple abnormalities identified. There is no adenopathy seen on the images submitted. IMPRESSION: No mammographic evidence to suggest malignancy is seen. The patient may return to screening mammography as per ACR guidelines. BI-RADS 1 - Negative. Reviewed, dictated and finalized at location C. D BANK CREDIT CLERK
== END 2025-09-03 13:00 | disposition home or self-care (01) ==
LOC: ANHFOHIMG 13:02
PROVIDERS: PCP Nurse Practitioner Family; Visit Provider Obstetrics & Gynecology
DX: Z12.31 Encounter for screening mammogram for malignant neoplasm of breast (principal)
CPT/HCPCS: 77063; 77067